=== PATIENT | male | born 2000 | race Caucasian/White ===

== ENCOUNTER 2021-04-08 22:34 | Emergency (ER) | payer SELFPAY ==
[~2021-04-08] VITALS: Ht 190.5 cm; Wt 95.3 kg
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
[2021-04-08] MEDS ORDERED: ACETAMINOPHEN 325 MG TABLET ONE (23:24)
[2021-04-08] MEDS ORDERED: ACETAMINOPHEN 325 MG TABLET PO ONE (23:30)
--- NOTE | 2021-04-08 23:31 | NUR ---
DR. EDWARDS AT PT'S BEDSIDE
--- NOTE | 2021-04-09 00:38 | NUR ---
Patient discharged to home in stable condition. Written and verbal after care instructions given. Patient verbalizes understanding of instruction. Pt ambulatory with a steady gait
[2021-04-09 00:39] VITALS: BP 130/73
== END 2021-04-09 00:49 | disposition home or self-care (01) ==
LOC: ER 22:37
DX: S29.011A Strain of muscle and tendon of front wall of thorax, initial encounter (principal); X58.XXXA Exposure to other specified factors, initial encounter; Y93.89 Activity, other specified; Y92.89 Other specified places as the place of occurrence of the external cause; Y99.8 Other external cause status